=== PATIENT | male | born 1970 | race Caucasian/White ===

== ENCOUNTER → 2018-02-09 09:37 | Outpatient (CLI) | payer OTHER, SELFPAY ==
[2018-02-09 10:12] LABS: Add Manual Diff / Slide Review NO; Basophils Percent Auto 0.6 % (0-2); Eosinophils Percent Auto 2.9 % (2-4); Hematocrit 52.7 % (41-53); Lymphocytes Percent Auto 28.8 % (25-40); Mean Corpuscular HGB Conc 34.3 % (30-36); Mean Corpuscular Hemoglobin 31.1 PG (26-34); Mean Corpuscular Volume 90.8 fL (80-100); Monocytes Percent Auto 10.2 % (3-14); Neutrophils Absolute Auto 4500 /uL (3000-5900); Neutrophils Percent Auto 57.5 % (50-75); Platelet Count 235 X10^3/uL (150-400); Red Cell Distribution Width 13.5 % (11.6-14.8); White Blood Cell Count 7.9 X10^3/uL (4.5-11.0)
[2018-02-09 10:24] LABS: Alanine Aminotransferase 45 IU/L (21-72); Albumin 4.4 g/dL (3.5-5.0); Albumin Globulin Ratio 1.5 (1.0-2.8); Alkaline Phosphatase 81 U/L (38-126); Aspartate Aminotransferase 28 IU/L (17-59); Bilirubin Total 0.8 mg/dL (0.2-1.3); Bilirubin Unconjugated 0.6 mg/dL (0.0-1.1); HEMOLYSIS < 15 (0-50); Total Protein 7.4 g/dL (6.3-8.2)
[2018-02-13 05:36] LABS: Albumin 4.2 g/dL (3.6-5.1); Sex Hormone Binding Globulin 13 nmol/L (10-50); Testosterone, Bioavailable 195.3 ng/dL (110.0-575.0); Testosterone, Total 390 ng/dL (250-1100); Testosterone,Free 101.4 pg/mL (46.0-224.0)
== END ==
PROVIDERS: Visit Provider Urology
DX: E29.1 Testicular hypofunction (principal)
CPT/HCPCS: 36415; 80076; 82040; 84270; 84403; 85025

== ENCOUNTER → 2020-08-16 15:14 | Outpatient (CLI) | payer OTHER, MEDICAID, SELFPAY ==
[2020-08-16 16:35] LABS: TSH w/ Reflex to FT4 1.15 uIU/mL (0.47-4.68)
== END ==
PROVIDERS: PCP Family Medicine; Referring Provider Family Medicine; Visit Provider Family Medicine
DX: E03.9 Hypothyroidism, unspecified (principal)
CPT/HCPCS: 36415; 84443

== ENCOUNTER → 2020-11-03 08:45 | Outpatient (CLI) | payer OTHER, MEDICAID, SELFPAY ==
[2020-11-03 10:54] LABS: Prostate Specific Antigen 0.417 ng/mL (0.10-4.00)
[2020-11-04 06:36] LABS: Sex Hormone Binding Globulin 14.3 nmol/L (19.3-76.4)
[2020-11-17 14:12] LABS: Testosterone % Fr + Wkly bound 33.2 % (9.0-46.0); Testosterone Fr+Wkly bound 57.7 ng/dL (40.0-250.0); Testosterone, Total 173.9 ng/dL (264.0-916.0)
== END ==
PROVIDERS: PCP Family Medicine; Referring Provider Specialist; Visit Provider Specialist
DX: E29.1 Testicular hypofunction (principal); N40.0 Benign prostatic hyperplasia without lower urinary tract symptoms
CPT/HCPCS: 36415; 84153; 84270; 84403

== ENCOUNTER → 2020-11-23 08:19 | Outpatient (CLI) | payer OTHER, MEDICAID, SELFPAY ==
[2020-11-27 15:08] LABS: Percent Free Testosterone 4.95 % (1.50-4.20); Testosterone Free 7.04 ng/dL (5.00-21.00); Testosterone Total 142.3 ng/dL (264.0-916.0)
== END ==
PROVIDERS: PCP Family Medicine; Referring Provider Specialist; Visit Provider Specialist
DX: E29.1 Testicular hypofunction (principal)
CPT/HCPCS: 36415; 84402; 84403

== ENCOUNTER → 2021-03-09 08:48 | Outpatient (CLI) | payer OTHER, MEDICAID, SELFPAY ==
[2021-03-09 09:34] LABS: Hematocrit 46.8 % (41-53); Hemoglobin 15.7 g/dL (13.5-17.5); Mean Corpuscular HGB Conc 33.5 % (30-36); Mean Corpuscular Hemoglobin 29.7 PG (26-34); Mean Corpuscular Volume 88.8 fL (80-100); Platelet Count 240 X10^3/uL (150-400); Red Blood Cell Count 5.28 X10^6/uL (4.5-5.9); Red Cell Distribution Width 13.9 % (11.6-14.8); White Blood Cell Count 6.1 X10^3/uL (4.5-11.0)
[2021-03-09 09:57] LABS: Hemoglobin A1C% w Est Avg Glu 5.6 % (4.0-6.0)
[2021-03-09 10:07] LABS: Alanine Aminotransferase 41 IU/L (<50); Albumin 4.3 g/dL (3.5-5.0); Albumin Globulin Ratio 1.3 (1.0-2.8); Alkaline Phosphatase 84 U/L (38-126); Aspartate Aminotransferase 38 IU/L (17-59); BUN Creatinine Ratio 15.5 (6-22); Bilirubin Total 0.6 mg/dL (0.2-1.3); Blood Urea Nitrogen 17 mg/dL (9-20); Calcium 9.8 mg/dL (8.4-10.2); Carbon Dioxide 26 mmol/L (22-32); Chloride 106 mmol/L (98-107); Cholesterol 254 mg/dL (140-199); Estimated Glomerular Filt Rate > 60.0 mL/min (>60); Globulin 3.2 g/dL (1.7-4.1); Glucose 109 mg/dL (70-100); HDL Cholesterol 38 mg/dL (40-60); HEMOLYSIS < 15 (0-50); Iron 125 ug/dL (49-181); LDL Cholesterol Calculated 175 mg/dL (<100); Potassium 4.3 mmol/L (3.4-5.1); Sodium 140 mmol/L (137-145); Total Protein 7.5 g/dL (6.3-8.2); Triglycerides 203 mg/dL (35-150)
[2021-03-09 10:18] LABS: Percent Iron Saturation 34 % (20-50); Total Iron Binding Capacity 371 ug/dL (261-462); Transferrin 278 mg/dL (206-381)
[2021-03-09 10:37] LABS: Prostate Specific Antigen 0.478 ng/mL (0.10-4.00)
[2021-03-09 10:39] LABS: TSH w/ Reflex to FT4 1.45 uIU/mL (0.47-4.68)
[2021-03-09 10:42] LABS: Ferritin 64 ng/mL (18-464)
[2021-03-09 11:04] LABS: Follicle Stimulating Hormone 3.92 mIU/mL; Luteinizing Hormone 4.04 mIU/mL
[2021-03-17 10:58] LABS: Percent Free Testosterone 3.32 % (1.50-4.20); Testosterone Free 6.33 ng/dL (5.00-21.00); Testosterone Total 190.8 ng/dL (264.0-916.0)
== END ==
PROVIDERS: Specialist; PCP Registered Nurse Diabetes Educator; Referring Provider Registered Nurse Diabetes Educator; Visit Provider Registered Nurse Diabetes Educator
DX: N40.0 Benign prostatic hyperplasia without lower urinary tract symptoms (principal); E29.1 Testicular hypofunction; R73.03 Prediabetes; Z86.73 Personal history of transient ischemic attack (TIA), and cerebral infarction without residual deficits; G25.81 Restless legs syndrome
CPT/HCPCS: 36415; 80053; 80061; 82306; 82728; 83001; 83002; 83036; 83540; 83550; 84153; 84402; 84403; 84443; 85027

== ENCOUNTER 2021-03-18 16:25 | Emergency (ER) | payer OTHER, MEDICAID, SELFPAY ==
[2021-03-18 16:29] VITALS: BP 136/84; PULSE 107; RESP 20; TEMP 36.3; O2SAT 94; BMI 33.9
--- NOTE | 2021-03-18 16:32 | DI.RAD.S_ITS ---
PROCEDURE: XR CHEST 1V INDICATIONS: Cough, SOB, +COVID TECHNIQUE: One view of the chest was acquired. COMPARISON: None. FINDINGS: Surgical changes and devices: None. Lungs and pleura: Subtle patchy bilateral scattered infiltrates consistent with viral pneumonia. No pleural effusions or pneumothorax. Mediastinum: Mediastinal contours appear normal. Heart size is normal. Bones and chest wall: No suspicious bony lesions. Overlying soft tissues appear unremarkable. IMPRESSION: Subtle patchy bilateral scattered infiltrates consistent with viral pneumonia. Dictated by: Magdy Méndez M.D. on 03/18/2021 at 16:46 Approved by: Magdy Méndez M.D. on 03/18/2021 at 16:47
--- NOTE | 2021-03-18 17:00 | ED.SOB ---
HPI - SOB/Dyspnea General Chief Complaint: Shortness of Breath/Dyspnea Stated Complaint: COVID PPOSITIVE SOB COUGH Time Seen by Provider: 03/18/21 16:31 Source: patient Mode of arrival: Ambulatory History of Present Illness HPI Narrative: 51-year-old male nonsmoker with history of stroke presents with his in the chief complaint of cough and body aches. He has known DESTINY and had been exposed by multiple family members. He thinks today is about day 7 for his symptoms. He has had some mild headache and sore throat as well as a dry and hacking cough. He denies any significant shortness of breath and states that he feels the best when he uses his CPAP for sleep apnea at night. He has had very minimal GI symptoms such as nausea, vomiting or diarrhea Related Data Home Medications Medication Instructions Recorded Confirmed levothyroxine 100 mcg capsule 100 mcg PO DAILY 09/24/20 03/03/21 meloxicam 15 mg tablet 15 mg PO DAILY 09/24/20 03/03/21 metformin 500 mg tablet 500 mg PO DAILY 09/24/20 03/03/21 aspirin 500 mg tablet (Vickey 500 mg PO DAILY tab 03/03/21 03/03/21 Advanced) cholecalciferol (vitamin D3) 50 50 mcg PO DAILY 03/03/21 03/03/21 mcg (2,000 unit) capsule fluticasone propionate 50 1 spray INTRANASAL DAILY 03/03/21 03/03/21 mcg/actuation nasal spray,suspension Previous Rx's Medication Instructions Recorded testosterone 20.25 mg/1.25 gram 2 pump TOPICAL DAILY #75 g 03/08/21 (1.62 %) transdermal gel pump benzonatate 100 mg capsule 100 mg PO TID PRN #14 cap 03/18/21 (Tesarturo Lin) Allergies Allergy/AdvReac Type Severity Reaction Status Date / Time shrimp Allergy Verified 03/03/21 14:43 Review of Systems Review of Systems Narrative: GENERAL: See HPI HEENT: Denies sinus pain, ear pain, sore throat, difficulty swallowing, dizziness. RESPIRATORY: See HPI CARDIOVASCULAR: Denies chest pain, palpitations, orthopnea, edema, GASTROINTESTINAL: See HPI : Denies dysuria, frequency, incontinence, hematuria, urinary retention. MUSCULOSKELETAL: denies weakness, joint pain, or bony pain SKIN: Denies rash, skin lesions, or other NEUROLOGIC: Denies weakness, headache, numbness, change in speech, confusion, seizures, incoordination. PSYCHIATRIC: No concerning psychosocial issues. 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 History of CVA (cerebrovascular accident) Hypertension Hypogonadism in male ANSHU (obstructive sleep apnea) Polyp of colon Prediabetes Rheumatoid arthritis Stroke Thyroid disease Surgical History History of appendectomy History of circumcision History of hernia repair History of shoulder surgery History of vasectomy Family History Grandmother Cancer Father Stroke Hypertension Hyperlipidemia Diabetes mellitus Coronary artery disease Mother Eczema Migraines Brother Seizure Social History marital status: number of children: 5 occupational status: employed Smoking Status: Never smoker Smokeless tobacco user: snuff alcohol intake: current Smoking Status: Never smoker Substance Use Type: marijuana Exam Narrative Exam Narrative: GENERAL: [51] year old patient appears stated age. Well-developed patient, in mild distress. Appears to feel unwell but in no significant distress, no evidence of respiratory difficulties such as tachypnea, use of accessory muscles or hypoxia HEAD: Atraumatic. Normocephalic. EYES: Pupils equal round and reactive. Extraocular motions intact. No scleral icterus. No injection or drainage. ENT: Nose without bleeding, purulent drainage. Throat without erythema, tonsillar hypertrophy or exudate. Airway patent. NECK: Trachea midline. Non tender CARDIOVASCULAR: Regular rate and rhythm without murmurs, gallops, or rubs. RESPIRATORY: Clear to auscultation. Breath sounds equal bilaterally. No wheezes, rales, or rhonchi. GASTROINTESTINAL: Abdomen soft, non-tender, nondistended. EXTREMITIES: No edema or joint tenderness. BACK: Nontender without deformity or crepitance. No flank tenderness. NEURO: AOx3. SKIN: No rash or erythema of visible areas Initial Vital Signs Initial Vital Signs: Vital Signs Temperature 97.4 F L 03/18/21 16:29 Pulse Rate 107 H 03/18/21 16:29 Respiratory Rate 20 03/18/21 16:29 Blood Pressure 136/84 03/18/21 16:29 Pulse Oximetry 94 03/18/21 16:29 Course Orders Ordered: ED Orders 03/18/21 16:32 Chest [XR chest 1V] Stat Vital Signs Vital signs: Vital Signs - 8 hr 03/18/21 16:29 03/18/21 18:23 Temperature 97.4 F L 100.0 F H Pulse Rate 107 H 106 H Respiratory Rate 20 24 Blood Pressure 136/84 133/65 Pulse Oximetry 94 98 MDM - SOB/Dyspnea MDM Narrative Medical decision making narrative: Patient with known COVID and a very reassuring physical exam. Heart rate had improved to the 80s and 90s by the time arrival, no evidence of tachypnea and no episode of hypoxia. Patient requires no supplemental oxygen. Chest x-ray is as expected. Return precautions given and questions answered to their apparent satisfaction Discharge Plan Departure Patient Disposition: Home Clinical Impression: COVID-19 Instructions: DI for COVID-19 (Suspected or Confirmed ) Activity Restrictions/Additional Instructions: *You have been diagnosed with [ COVID-19] *What to do: * per recommendations from the CDC and the [facility] Department of Health * stay home except to get medical care. Restrict activities outside your home, except for getting medical care. Do not go to work, school, or public areas. Avoid using public transportation, ride sharing, or taxis. * separate yourself from other people in your home. * call ahead before visiting your doctor * Wear a facemask * Cover your coughs and sneezes * Clean your hands often * Avoid sharing household items * Clean all high-touch services every day * Monitor your symptoms and seek prompt medical attention if your illness is worsening, particularly with difficulty in breathing. You may discontinue your isolation when: 1. You have been fever-free for at least 24 hours without the use of fever reducing medication, AND 2. Your symptoms are getting better 3. At least 10 days have passed since symptoms first appeared Individuals with laboratory confirmed COVID-19 who have not had any symptoms may discontinue home isolation when at least 10 days have passed since the date of their first COVID-19 diagnostic test and have had no subsequent illness Prescriptions: New benzonatate [Tessalon Perles] 100 mg capsule 100 mg PO TID PRN (Reason: cough) Qty: 14 RF: 0 No Action metformin 500 mg tablet 500 mg PO DAILY RF: 0 levothyroxine 100 mcg capsule 100 mcg PO DAILY RF: 0 meloxicam 15 mg tablet 15 mg PO DAILY RF: 0 testosterone 20.25 mg/1.25 gram (1.62 %) gel in metered-dose pump 2 pump topical DAILY Qty: 75 RF: 3 fluticasone propionate 50 mcg/actuation spray,suspension 1 spray intranasal DAILY RF: 0 cholecalciferol (vitamin D3) 50 mcg (2,000 unit) capsule 50 mcg PO DAILY RF: 0 Vickey Advanced 500 mg tablet 500 mg PO DAILY RF: 0 Referrals: Demetrio Calderon ARNP [Primary Care Provider] -
[2021-03-18 18:23] VITALS: BP 133/65; PULSE 106; RESP 24; TEMP 37.8; O2SAT 98
== END 2021-03-18 18:23 | disposition home or self-care (01) ==
PROVIDERS: Emergency Provider Emergency Medicine; PCP Registered Nurse Diabetes Educator
DX: U07.1 COVID-19 (principal)
CPT/HCPCS: 71045; 99283

== ENCOUNTER → 2021-07-28 07:28 | Outpatient (CLI) | payer OTHER, MEDICAID, SELFPAY ==
[2021-07-28 08:20] LABS: Add Manual Diff / Slide Review NO; Basophils Absolute Auto 0 /uL (0-100); Basophils Percent Auto 0.5 % (0-2); Eosinophils Absolute Auto 200 /uL (0-450); Eosinophils Percent Auto 3.1 % (2-4); Hematocrit 44.2 % (41-53); Hemoglobin 15.2 g/dL (13.5-17.5); Lymphocytes Absolute Auto 3000 /uL (1100-4500); Lymphocytes Percent Auto 37.4 % (25-40); Mean Corpuscular HGB Conc 34.3 % (30-36); Mean Corpuscular Hemoglobin 30.3 PG (26-34); Mean Corpuscular Volume 88.1 fL (80-100); Monocytes Absolute Auto 800 /uL (0-900); Monocytes Percent Auto 10.1 % (3-14); Neutrophils Absolute Auto 3900 /uL (1500-7000); Neutrophils Percent Auto 48.9 % (50-75); Platelet Count 228 X10^3/uL (150-400); Red Blood Cell Count 5.01 X10^6/uL (4.5-5.9); Red Cell Distribution Width 13.4 % (11.6-14.8)
[2021-07-28 08:39] LABS: Cholesterol 162 mg/dL (140-199); HDL Cholesterol 37 mg/dL (40-60); LDL Cholesterol Calculated 99 mg/dL (<100); Triglycerides 129 mg/dL (35-150)
[2021-07-28 09:08] LABS: Prostate Specific Antigen 0.429 ng/mL (0.10-4.00)
[2021-07-28 09:11] LABS: Testosterone 158 ng/dL (71.8-623)
== END ==
PROVIDERS: PCP Registered Nurse Diabetes Educator; Referring Provider Specialist; Visit Provider Specialist
DX: E29.1 Testicular hypofunction (principal); N40.0 Benign prostatic hyperplasia without lower urinary tract symptoms; E34.9 Endocrine disorder, unspecified; N52.1 Erectile dysfunction due to diseases classified elsewhere; R97.20 Elevated prostate specific antigen [PSA]
CPT/HCPCS: 36415; 80061; 84153; 84403; 85025

== ENCOUNTER → 2021-09-28 09:03 | Outpatient (CLI) | payer OTHER, MEDICAID, SELFPAY ==
[2021-09-28 10:23] LABS: Add Manual Diff / Slide Review NO; Basophils Absolute Auto 100 /uL (0-100); Basophils Percent Auto 0.7 % (0-2); Eosinophils Absolute Auto 200 /uL (0-450); Eosinophils Percent Auto 2.8 % (2-4); Hematocrit 44.2 % (41-53); Hemoglobin 14.9 g/dL (13.5-17.5); Lymphocytes Absolute Auto 2500 /uL (1100-4500); Lymphocytes Percent Auto 34.6 % (25-40); Mean Corpuscular HGB Conc 33.6 % (30-36); Mean Corpuscular Hemoglobin 29.7 PG (26-34); Mean Corpuscular Volume 88.3 fL (80-100); Monocytes Absolute Auto 700 /uL (0-900); Monocytes Percent Auto 9.2 % (3-14); Neutrophils Absolute Auto 3900 /uL (1500-7000); Neutrophils Percent Auto 52.7 % (50-75); Platelet Count 269 X10^3/uL (150-400); Red Blood Cell Count 5.01 X10^6/uL (4.5-5.9); Red Cell Distribution Width 13.9 % (11.6-14.8); White Blood Cell Count 7.4 X10^3/uL (4.5-11.0)
[2021-09-28 11:07] LABS: Prostate Specific Antigen Scrn 0.459 ng/mL (0.1-4.0)
== END ==
PROVIDERS: PCP Registered Nurse Diabetes Educator; Referring Provider Specialist; Visit Provider Specialist
DX: D75.1 Secondary polycythemia (principal); R97.20 Elevated prostate specific antigen [PSA]; E03.9 Hypothyroidism, unspecified; E78.5 Hyperlipidemia, unspecified; R73.03 Prediabetes
CPT/HCPCS: 36415; 80053; 80061; 83036; 84443; 85025; G0103

== ENCOUNTER 2021-10-12 12:11 | Emergency (ER) | payer OTHER, MEDICAID, SELFPAY ==
[2021-10-12] VITALS (12 sets, daily range): BP systolic 114–167; BP diastolic 73–97; PULSE 71–94; RESP 16–23; TEMP 36.3; O2SAT 96–99; BMI 35.9
--- NOTE | 2021-10-12 12:49 | DI.RAD.S_ITS ---
PROCEDURE: XR CHEST 1V INDICATIONS: Possible stroke TECHNIQUE: One view of the chest was acquired. COMPARISON: [facility], CR, XR CHEST 1V, 03/18/2021, 16:36. FINDINGS: Surgical changes and devices: None. Lungs and pleura: Lungs are clear. No pleural effusions or pneumothorax. Mediastinum: Mediastinal contours appear normal. Heart size is normal. Bones and chest wall: No suspicious bony lesions. Overlying soft tissues appear unremarkable. IMPRESSION: 1. No acute cardiopulmonary disease. Dictated by: David Neumann M.D. on 10/12/2021 at 13:51 Approved by: David Neumann M.D. on 10/12/2021 at 13:54
--- NOTE | 2021-10-12 12:50 | DI.CT.S_ITS ---
PROCEDURE: CT HEAD/BRAIN WO CON INDICATIONS: on / off right leg/ arm numbess w/ right leg weak, h/o CVA TECHNIQUE: Noncontrast 4.5 mm thick angled axial sections acquired from the foramen magnum to the vertex, with coronal and sagittal reformats. For radiation dose reduction, the following was used: automated exposure control, adjustment of mA and/or kV according to patient size. COMPARISON: None. FINDINGS: Image quality: Excellent. CSF spaces: Basal cisterns are patent. No extra-axial fluid collections. The ventricles are symmetric in size and shape. Brain: There is hyperdensity in the right caudate, suspicious for subacute or chronic lacunar infarct. No intracranial bleeds or masses. There is cerebral volume loss for age. There are mild periventricular and deep white matter chronic small vessel ischemic changes. There is intracranial internal carotid artery atherosclerosis. Skull and face: Calvarium and visualized facial bones appear intact, without suspicious lesions. Sinuses: Visualized sinuses and mastoids are clear. IMPRESSION: 1. There is subacute or chronic lacunar infarct in the right caudate. Dictated by: Lee Lyles M.D. on 10/12/2021 at 13:46 Approved by: Lee Lyles M.D. on 10/12/2021 at 13:49
[2021-10-12 13:12] LABS: Add Manual Diff / Slide Review NO; Basophils Absolute Auto 0 /uL (0-100); Basophils Percent Auto 0.5 % (0-2); Eosinophils Absolute Auto 200 /uL (0-450); Eosinophils Percent Auto 2.2 % (2-4); Hematocrit 46.3 % (41-53); Hemoglobin 15.7 g/dL (13.5-17.5); Lymphocytes Absolute Auto 2500 /uL (1100-4500); Lymphocytes Percent Auto 29.4 % (25-40); Mean Corpuscular HGB Conc 33.8 % (30-36); Mean Corpuscular Hemoglobin 29.8 PG (26-34); Monocytes Absolute Auto 900 /uL (0-900); Neutrophils Absolute Auto 5000 /uL (1500-7000); Neutrophils Percent Auto 57.9 % (50-75); Platelet Count 227 X10^3/uL (150-400); Red Blood Cell Count 5.26 X10^6/uL (4.5-5.9); Red Cell Distribution Width 13.9 % (11.6-14.8); White Blood Cell Count 8.6 X10^3/uL (4.5-11.0)
[2021-10-12 13:18] LABS: INR 1.1 (0.9-1.3); Prothrombin Time 12.6 SECONDS (10.1-12.7)
[2021-10-12 13:21] LABS: PTT Partial Thromboplastin Tim 32 SECONDS (26.4-36.2)
[2021-10-12 13:23] LABS: Alanine Aminotransferase 29 IU/L (<50); Albumin 4.7 g/dL (3.5-5.0); Albumin Globulin Ratio 1.4 (1.0-2.8); Alkaline Phosphatase 93 U/L (38-126); Aspartate Aminotransferase 29 IU/L (17-59); BUN Creatinine Ratio 17.5 (6-22); Bilirubin Total 0.5 mg/dL (0.2-1.3); Blood Urea Nitrogen 17 mg/dL (9-20); Calcium 9.9 mg/dL (8.4-10.2); Carbon Dioxide 25 mmol/L (22-32); Chloride 106 mmol/L (98-107); Creatine Kinase 101 U/L (55-170); Estimated Glomerular Filt Rate > 60.0 mL/min (>60); Globulin 3.4 g/dL (1.7-4.1); Glucose 97 mg/dL (70-100); HEMOLYSIS < 15 (0-50); Potassium 3.9 mmol/L (3.4-5.1); Sodium 140 mmol/L (137-145); Total Protein 8.1 g/dL (6.3-8.2)
[2021-10-12 13:35] LABS: Troponin I < 0.012 ng/mL (0.01-0.034)
[2021-10-12 13:39] LABS: CKMB % Relative Index 0.6 % (1.5-5.0); Creatine Kinase MB 0.59 ng/mL (<2.37)
--- NOTE | 2021-10-12 13:57 | ED.NEUROSD ---
HPI - Neuro Symptoms/Deficit General Chief Complaint: Neuro Symptoms/Deficit Stated Complaint: HX CVA Right leg dragging. Dr said to come to ED Time Seen by Provider: 10/12/21 13:46 Source: patient Mode of arrival: Ambulatory History of Present Illness HPI Narrative: Patient is a 51-year-old male with history of stroke, hyperlipidemia, hypertension diabetes presenting today with 1 week of right leg weakness in right arm numbness and tingling. He says he does have a prior stroke but it was 10 years ago. In for 1 week he has had these new symptoms. He is not falling. He has no visual deficits. He does occasionally have chest discomfort which he does but sharp and steady. No palliation or provocation. He is still having some minor chest discomfort. He has been taking all his medications as directed. No known history of coronary artery disease. Patient states that his leg comes and goes. On Anticoagulants: Yes (ASA 81 mg daily) Related Data Home Medications Medication Instructions Recorded Confirmed aspirin 500 mg tablet (Vickey 500 mg PO DAILY tab 03/03/21 10/05/21 Advanced) cholecalciferol (vitamin D3) 50 50 mcg PO DAILY 03/03/21 10/05/21 mcg (2,000 unit) capsule fluticasone propionate 50 1 spray INTRANASAL DAILY 03/03/21 10/05/21 mcg/actuation nasal spray,suspension RedMed AirSense 11Auto 06/30/21 10/05/21 Previous Rx's Medication Instructions Recorded levothyroxine 100 mcg capsule 100 mcg PO DAILY #90 cap 04/13/21 atorvastatin 80 mg tablet 80 mg PO BEDTIME #90 tab 05/17/21 meloxicam 15 mg tablet 15 mg PO DAILY #90 tab 05/17/21 metformin 500 mg tablet 500 mg PO BID #180 tab 05/17/21 alfuzosin 10 mg tablet,extended 10 mg PO DAILY #90 tab 08/03/21 release 24 hr (Uroxatral) sildenafil (pulm.hypertension) 20 20 mg PO .Daily as needed #60 tab 08/03/21 mg tablet testosterone 2 mg/24 hour 1 patch TRANSDERMAL DAILY #60 ea 10/05/21 transdermal 24 hour patch Allergies Allergy/AdvReac Type Severity Reaction Status Date / Time shrimp Allergy Verified 10/12/21 12:46 Review of Systems Review of Systems Narrative: GENERAL: Denies chills, fatigue, malaise, fever, sweats, travel HEENT: Denies sinus pain, ear pain, sore throat, difficulty swallowing, neck pain RESPIRATORY: Denies dyspnea, cough, wheezing, hemoptysis, sputum. CARDIOVASCULAR: See HPI GASTROINTESTINAL: Denies nausea, vomiting, abdominal pain, diarrhea, constipation, melena. : Denies dysuria, frequency, incontinence, hematuria, urinary retention, flank pain. MUSCULOSKELETAL: Denies weakness, joint pain, or bony pain SKIN: No rash, no erythema, no pruritus NEUROLOGIC: See HPI PSYCHIATRIC: No concerning psychosocial issues. 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 Fractures Hearing loss (~1989) History of CVA (cerebrovascular accident) History of urinary incontinence (~2017) Hypertension Hypogonadism in male (~2010) Hypothyroidism Joint pain ANSHU (obstructive sleep apnea) Polyp of colon Prediabetes Rash of back (~2018) Rheumatoid arthritis Shoulder pain Stroke Thyroid disease Vision disorder Surgical History Anesthesia History of appendectomy (~1975) History of circumcision History of hernia repair (~2000) History of shoulder surgery (~1986) History of surgery (~2011) History of vasectomy Family History Grandmother Cancer Hyperlipidemia Seizure Hypertension Father Stroke Hypertension Hyperlipidemia Diabetes mellitus Coronary artery disease History of heart disease Mother Eczema Migraines Brother Seizure Grandfather Diabetes mellitus Social History marital status: number of children: 5 occupational status: employed Smoking Status: Never smoker Smokeless tobacco user: snuff alcohol intake: current Smoking Status: Never smoker alcohol intake frequency: a few times a month Substance Use Type: marijuana Exam Initial Vital Signs Initial Vital Signs: Vital Signs Temperature 97.4 F L 10/12/21 12:43 Pulse Rate 94 H 10/12/21 12:43 Respiratory Rate 18 10/12/21 12:43 Blood Pressure 153/88 H 10/12/21 12:43 Pulse Oximetry 99 10/12/21 12:43 GENERAL: Alert 51-year-old male no acute distress HEENT: Head atraumatic,EOMI, pupils reactive, face symmetric, moist mucous membranes CARDIOVASCULAR: Regular rate and rhythm without murmurs, rubs or gallops. RESPIRATORY: Breath sounds equal bilaterally, no wheezes rales or rhonchi. ABDOMEN: Soft, nontender. Normoactive bowel sounds all 4 quadrants. No guarding or rebound. EXTREMITIES: Normal range of motion, no clubbing or edema. Neurovascularly intact NEUROLOGICAL: Alert and oriented x4.Normal gait and speech. Cranial nerves II through XII grossly intact. Good qfxvur-op-gnod, good xmwi-va-nkgg, strength equal bilaterally, no dysarthria or aphasia, mild decreased sensation on the right leg visual changes, no facial droop SKIN: Warm, dry, no laceration, no petechiae, no rashes or lesions. Scores NIH Stroke Scale Level of Conciousness: Alert, keenly responsive Ask month/age: Answers both questions correctly. Open/close eyes, close hand: Performs both tasks correctly Best gaze horizontal: Normal Visual fabian: No visual loss Facial palsy: Normal symetrical movement Left arm drift: No drift for full 10 sec Right arm drift: No drift for full 10 sec Left leg drift: No drift for full 5 sec Right leg drift: No drift for full 5 sec Limb ataxia: Absent Sensory on face/arms/legs: Mild to moderate sensory loss, can tell touch Best language: No aphasia, normal Dysarthria: Normal Extinction or inattention: No abnormality Total NIH Stroke scale score: 1 Course Orders Ordered: ED Orders 10/12/21 12:04 Complete Blood Count AUTO DIFF Stat Comprehensive Metabolic Panel Stat Partial Thromboplastin Time Stat Prothrombin Time INR Stat Troponin & CK Cardiac Panel Stat 10/12/21 12:49 XR chest 1V Stat EKG-12 Lead Stat 10/12/21 12:50 CT head/brain wo con Stat 10/12/21 14:06 MR stroke Stat 10/12/21 14:30 Trop I [Troponin I] Stat Vital Signs Vital signs: Vital Signs - 8 hr 10/12/21 12:43 10/12/21 13:23 10/12/21 13:32 Temperature 97.4 F L Pulse Rate 94 H 80 80 Respiratory Rate 18 Blood Pressure 153/88 H Pulse Oximetry 99 99 98 10/12/21 13:35 10/12/21 13:46 10/12/21 14:00 Temperature Pulse Rate 73 73 71 Respiratory Rate 22 16 18 Blood Pressure 167/96 H 149/97 H 128/79 Pulse Oximetry 98 98 97 10/12/21 14:30 10/12/21 15:24 10/12/21 15:30 Temperature Pulse Rate 76 77 84 Respiratory Rate 21 22 23 Blood Pressure Pulse Oximetry 99 98 96 10/12/21 16:00 10/12/21 16:09 10/12/21 16:30 Temperature Pulse Rate 82 73 81 Respiratory Rate 21 17 Blood Pressure 123/77 114/73 Pulse Oximetry 97 97 96 MDM - Neuro Symptoms/Deficit Lab Data Result diagrams: 10/12/21 12:04 10/12/21 12:04 Labs: Lab Results 10/12/21 10/12/21 10/12/21 Range/Units 12:04 12:04 12:04 WBC 8.6 (4.5-11.0) X10^3/uL RBC 5.26 (4.5-5.9) X10^6/uL Hgb 15.7 (13.5-17.5) g/dL Hct 46.3 (41-53) % MCV 88.0 (80-100) fL MCH 29.8 (26-34) PG MCHC 33.8 (30-36) % RDW 13.9 (11.6-14.8) % Plt Count 227 (150-400) X10^3/uL Neut % (Auto) 57.9 (50-75) % Lymph % (Auto) 29.4 (25-40) % [place] % (Auto) 10.0 (3-14) % Eos % (Auto) 2.2 (2-4) % Baso % (Auto) 0.5 (0-2) % Neut # (Auto) 5000 (7277-1802) /uL Lymph # (Auto) 2500 (5852-8180) /uL [place] # (Auto) 900 (0-900) /uL Eos # (Auto) 200 (0-450) /uL Baso # (Auto) 0 (0-100) /uL PT 12.6 (10.1-12.7) SECONDS INR 1.1 (0.9-1.3) APTT 32 (26.4-36.2) SECONDS Sodium 140 (137-145) mmol/L Potassium 3.9 (3.4-5.1) mmol/L Chloride 106 (98-107) mmol/L Carbon Dioxide 25 (22-32) mmol/L BUN 17 (9-20) mg/dL Creatinine 0.97 (0.66-1.25) mg/dL Estimated GFR > 60.0 (>60) mL/min BUN/Creatinine Ratio 17.5 (6-22) Glucose 97 (70-100) mg/dL Calcium 9.9 (8.4-10.2) mg/dL Total Bilirubin 0.5 (0.2-1.3) mg/dL AST 29 (17-59) IU/L ALT 29 (<50) IU/L Alkaline Phosphatase 93 (38-126) U/L Total Creatine Kinase 101 (55-170) U/L CK-MB (CK-2) 0.59 (<2.37) ng/mL CK-MB (CK-2) Rel Index 0.6 L (1.5-5.0) % Troponin I < 0.012 (0.01-0.034) ng/mL Total Protein 8.1 (6.3-8.2) g/dL Albumin 4.7 (3.5-5.0) g/dL Globulin 3.4 (1.7-4.1) g/dL Albumin/Globulin Ratio 1.4 (1.0-2.8) 10/12/21 Range/Units 14:30 WBC (4.5-11.0) X10^3/uL RBC (4.5-5.9) X10^6/uL Hgb (13.5-17.5) g/dL Hct (41-53) % MCV (80-100) fL MCH (26-34) PG MCHC (30-36) % RDW (11.6-14.8) % Plt Count (150-400) X10^3/uL Neut % (Auto) (50-75) % Lymph % (Auto) (25-40) % [place] % (Auto) (3-14) % Eos % (Auto) (2-4) % Baso % (Auto) (0-2) % Neut # (Auto) (0550-7062) /uL Lymph # (Auto) (2170-6555) /uL [place] # (Auto) (0-900) /uL Eos # (Auto) (0-450) /uL Baso # (Auto) (0-100) /uL PT (10.1-12.7) SECONDS INR (0.9-1.3) APTT (26.4-36.2) SECONDS Sodium (137-145) mmol/L Potassium (3.4-5.1) mmol/L Chloride (98-107) mmol/L Carbon Dioxide (22-32) mmol/L BUN (9-20) mg/dL Creatinine (0.66-1.25) mg/dL Estimated GFR (>60) mL/min BUN/Creatinine Ratio (6-22) Glucose (70-100) mg/dL Calcium (8.4-10.2) mg/dL Total Bilirubin (0.2-1.3) mg/dL AST (17-59) IU/L ALT (<50) IU/L Alkaline Phosphatase (38-126) U/L Total Creatine Kinase (55-170) U/L CK-MB (CK-2) (<2.37) ng/mL CK-MB (CK-2) Rel Index (1.5-5.0) % Troponin I < 0.012 (0.01-0.034) ng/mL Total Protein (6.3-8.2) g/dL Albumin (3.5-5.0) g/dL Globulin (1.7-4.1) g/dL Albumin/Globulin Ratio (1.0-2.8) Urine Dip Bedside Urine Glucose Negative Bedside Urine Bilirubin - Negative Bedside Urine Ketone - Negative Urine Specific Page 1.030 Bedside Urine Occult Blood - Negative Bedside Urine pH 6.0 Bedside Urine Protein - Negative Bedside Urine Urobilinogen - Negative Bedside Urine Nitrite - Negative Bedside Urine Leukocytes - Negative Esterase Imaging Data CT scan - head: Radiologist's Impression: PROCEDURE:? CT HEAD/BRAIN WO CON ? INDICATIONS:? on / off right leg/ arm numbess w/ right leg weak, h/o CVA ? TECHNIQUE:? Noncontrast 4.5 mm thick angled axial sections acquired from the foramen magnum to the vertex, with coronal and sagittal reformats.? For radiation dose reduction, the following was used:? automated exposure control, adjustment of mA and/or kV according to patient size.? ? COMPARISON:? None. ? FINDINGS:? Image quality:? Excellent.? ? CSF spaces:? Basal cisterns are patent.? No extra-axial fluid collections.? The ventricles are symmetric in size and shape.? ? Brain:? There is hyperdensity in the right caudate, suspicious for subacute or chronic lacunar infarct.? No intracranial bleeds or masses.? There is cerebral volume loss for age.? There are mild periventricular and deep white matter chronic small vessel ischemic changes.? There is intracranial internal carotid artery atherosclerosis.? ? Skull and face:? Calvarium and visualized facial bones appear intact, without suspicious lesions.? ? Sinuses:? Visualized sinuses and mastoids are clear.? ? IMPRESSION: ? 1. There is subacute or chronic lacunar infarct in the right caudate. ? ? ? Dictated by: Lee Lyles M.D. on 10/12/2021 at 13:46 Chest x-ray: Radiologist's Impression: PROCEDURE:? XR CHEST 1V ? INDICATIONS:? Possible stroke ? TECHNIQUE:? One view of the chest was acquired.? ? COMPARISON:? [facility], , XR CHEST 1V, 03/18/2021, 16:36. ? FINDINGS:? ? Surgical changes and devices:? None.? ? Lungs and pleura:? Lungs are clear.? No pleural effusions or pneumothorax.? ? Mediastinum:? Mediastinal contours appear normal.? Heart size is normal.? ? Bones and chest wall:? No suspicious bony lesions.? Overlying soft tissues appear unremarkable.? ? IMPRESSION:? ? 1.? No acute cardiopulmonary disease. ? ? ? Dictated by: David Neumann M.D. on 10/12/2021 at 13:51 ? ? MR stroke: Radiologist's Impression: PROCEDURE:? MR STROKE Pre- and post-contrast brain MRI, non-contrast brain MR angiogram, pre- and postcontrast neck MR angiogram ? INDICATIONS:? old stroke , new left leg weakness and left arm [id number] ? TECHNIQUE:? Brain:? Noncontrast axial T1 spin echo, axial T2 fast spin echo, sagittal and axial FLAIR, coronal T2 fast spin echo, axial gradient echo, axial diffusion and ADC through the brain.? After the administration of contrast, axial 3D VIBE of the cranial vasculature and brain.? Brain MRA:? Non-contrast 3-D time of flight MR angiogram, with multiple ullagsy-yzajvscvm-eymwofurnl (MIP) reformats performed.? Neck MRA:? Axial and sagittal TruFISP through the neck.? Coronal dynamic MR angiogram during administration of contrast in the arterial and venous phases, with 3-dimenstional jdrkttu-muwzjpmeg-mrtqwdnmqw (MIP) reformats constructed from subtraction images.? ? COMPARISON:? None. ? FINDINGS:? Image quality:? Excellent.? ? BRAIN:? CSF spaces:? Ventricles are normal in size and shape.? Basal cisterns are patent.? No extra-axial fluid collections.? Brain:? No intracranial bleeds or mass effects.? Babcock-white matter interface is normal.? Diffusion weighted images show no acute ischemic insults.? Brainstem appears normal.? Normal intravascular flow voids are present.? No abnormal intracranial enhancement.? Old lacunar infarct noted in the right caudate nucleus.? Old cerebellar cortical infarct noted in the right cerebellar hemisphere. Skull and face:? Calvarial marrow signal is normal.? Orbits appear normal.? Sinuses:? Sinuses and mastoids are clear.? ? BRAIN MR ANGIOGRAM:? Anterior circulation:? Intracranial internal carotid arteries are normal in size and enhancement.? The flow within the paired anterior cerebral arteries is normal and symmetric.? The flow within the middle cerebral arteries is normal and symmetric.? The anterior communicating artery is seen.? No stenoses, occlusions, or aneurysms.? Posterior circulation:? The visualized portions of the vertebral arteries demonstrate normal caliber, and join to form a normal appearing basilar artery.? The flow within the posterior cerebral arteries is normal and symmetric.? No stenoses, occlusions, or aneurysms.? Hypoplasia/aplasia of the left P1 SPEED RUNNER noted. The P2 segment is supplied by a widely patent posterior communicating artery. Remainder of the distal vasculature unremarkable.? ? NECK MR ANGIOGRAM:? Carotids:? Great vessels demonstrate a conventional anatomy as they arise from the aortic arch.? The origins of the common carotid arteries appear patent.? The calibers and courses of both common carotid arteries are normal.? 30% stenosis noted in the proximal left ICA.? The internal carotid arteries otherwise demonstrate normal course and caliber. ? Posterior circulation:? The origins of the vertebral arteries appear patent.? More superior portions of both vertebral arteries demonstrate normal course and caliber, and join to form a normal appearing basilar artery.? Miscellaneous:? Subclavian arteries appear patent.? Pre-contrast images through the neck show no soft tissue abnormalities.? ? IMPRESSION:? ? 1. Old right basal ganglia lacunar and right cerebellar cortical infarcts.? No acute infarct, hemorrhage or mass lesion. ? 2. Unremarkable MR angiogram of the brain ? 3. 30% left proximal ICA stenosis utilizing NASCET criteria. ? Approved by: Jacnito Michaud M.D. on 10/12/2021 at 15:18? ECG Data Interpretation: Rhythm rate 71 MO interval 218 QRS [address] changes or T-wave inversions, no priors to compare MDM Narrative Medical decision making narrative: Patient has had ongoing symptoms for over 1 week they do seem to come and go. He has a history of a prior stroke without residual deficits. He does have some mild decreased sensation but he is walking. CT showed subacute or chronic stroke, MRI does not show any new or acute stroke. He is re-evaluated he is ambulatory without any difficulty there is no foot drop. He says that he does have a history of sciatica but he says this is completely different he has no back pain or sharp shooting pain. He says his leg to sometimes feels ? At this time no further workup. He says he has not missed any of his medication. Recommend he continue to take aspirin and all of his medications. I also strongly encouraged him to return to the emergency department and he should have any new or worsening symptoms Patient also complaining of intermittent chest discomfort is a vest been going on for a long time. No EKG changes 2- troponins. Strongly recommended follow-up for possible stress test and echocardiogram. Discharge Plan Departure Patient Disposition: Home Clinical Impression: Right leg weakness, Chronic cerebrovascular accident Instructions: DI for Stroke-Ischemic Activity Restrictions/Additional Instructions: *You have been diagnosed with leg weakness *What to do: At this time MRI does not show any new stroke. Please continue to take all of your medication so that you do not have a stroke or heart attack. You may need further heart workup such as a stress test or an echocardiogram. *Continue to take medications as directed *Follow up with your primary care provider in 2-3 days or call [phone] *Return to ER if you should have increasing weakness tingling inability to walk loss of urine or stool worsening back pain or any new, worsening or concerning symptoms Prescriptions: No Action levothyroxine 100 mcg capsule 100 mcg PO DAILY Qty: 90 3RF fluticasone propionate 50 mcg/actuation spray,suspension 1 spray intranasal DAILY 0RF Rx Instructions: administer into each nostril cholecalciferol (vitamin D3) 50 mcg (2,000 unit) capsule 50 mcg PO DAILY 0RF Vickey Advanced 500 mg tablet 500 mg PO DAILY 0RF atorvastatin 80 mg tablet 80 mg PO BEDTIME Qty: 90 3RF metformin 500 mg tablet 500 mg PO BID Qty: 180 3RF meloxicam 15 mg tablet 15 mg PO DAILY Qty: 90 3RF (DME) RedMed AirSense 11Auto See Rx Instructions .Route .MEDSUPPLY 0RF Rx Instructions: CPAP Min: Max: DME: [facility] sildenafil (pulm.hypertension) 20 mg tablet 20 mg PO .Daily as needed Qty: 60 3RF Rx Instructions: Take 1 to maximum of 5 tablets by mouth daily as needed 1 hour before sexual activity. alfuzosin [Uroxatral] 10 mg tablet extended release 24 hr 10 mg PO DAILY Qty: 90 3RF Rx Instructions: administer after the same meal each day testosterone 2 mg/24 hour patch 24 hour 1 patch transdermal DAILY Qty: 60 3RF Referrals: Demetrio Calderon ARNP [Primary Care Provider] -
--- NOTE | 2021-10-12 14:06 | DI.MRI.S_ITS ---
PROCEDURE: MR STROKE Pre- and post-contrast brain MRI, non-contrast brain MR angiogram, pre- and postcontrast neck MR angiogram INDICATIONS: old stroke , new left leg weakness and left arm [id number] TECHNIQUE: Brain: Noncontrast axial T1 spin echo, axial T2 fast spin echo, sagittal and axial FLAIR, coronal T2 fast spin echo, axial gradient echo, axial diffusion and ADC through the brain. After the administration of contrast, axial 3D VIBE of the cranial vasculature and brain. Brain MRA: Non-contrast 3-D time of flight MR angiogram, with multiple klwdtkk-erpwtxxxd-pfkrbinbxj (MIP) reformats performed. Neck MRA: Axial and sagittal TruFISP through the neck. Coronal dynamic MR angiogram during administration of contrast in the arterial and venous phases, with 3-dimenstional xkjwwox-vmxbxpwhb-mjwzxfslbg (MIP) reformats constructed from subtraction images. COMPARISON: None. FINDINGS: Image quality: Excellent. BRAIN: CSF spaces: Ventricles are normal in size and shape. Basal cisterns are patent. No extra-axial fluid collections. Brain: No intracranial bleeds or mass effects. Babcock-white matter interface is normal. Diffusion weighted images show no acute ischemic insults. Brainstem appears normal. Normal intravascular flow voids are present. No abnormal intracranial enhancement. Old lacunar infarct noted in the right caudate nucleus. Old cerebellar cortical infarct noted in the right cerebellar hemisphere. Skull and face: Calvarial marrow signal is normal. Orbits appear normal. Sinuses: Sinuses and mastoids are clear. BRAIN MR ANGIOGRAM: Anterior circulation: Intracranial internal carotid arteries are normal in size and enhancement. The flow within the paired anterior cerebral arteries is normal and symmetric. The flow within the middle cerebral arteries is normal and symmetric. The anterior communicating artery is seen. No stenoses, occlusions, or aneurysms. Posterior circulation: The visualized portions of the vertebral arteries demonstrate normal caliber, and join to form a normal appearing basilar artery. The flow within the posterior cerebral arteries is normal and symmetric. No stenoses, occlusions, or aneurysms. Hypoplasia/aplasia of the left P1 [employer] TE[employer]ER noted. The P2 segment is supplied by a widely patent posterior communicating artery. Remainder of the distal vasculature unremarkable. NECK MR ANGIOGRAM: Carotids: Great vessels demonstrate a conventional anatomy as they arise from the aortic arch. The origins of the common carotid arteries appear patent. The calibers and courses of both common carotid arteries are normal. 30% stenosis noted in the proximal left ICA. The internal carotid arteries otherwise demonstrate normal course and caliber. Posterior circulation: The origins of the vertebral arteries appear patent. More superior portions of both vertebral arteries demonstrate normal course and caliber, and join to form a normal appearing basilar artery. Miscellaneous: Subclavian arteries appear patent. Pre-contrast images through the neck show no soft tissue abnormalities. IMPRESSION: 1. Old right basal ganglia lacunar and right cerebellar cortical infarcts. No acute infarct, hemorrhage or mass lesion. 2. Unremarkable MR angiogram of the brain 3. 30% left proximal ICA stenosis utilizing NASCET criteria. Approved by: Jacinto Michaud M.D. on 10/12/2021 at 15:18
[2021-10-12 15:01] LABS: Troponin I < 0.012 ng/mL (0.01-0.034)
== END 2021-10-12 17:05 | disposition home or self-care (01) ==
PROVIDERS: Emergency Provider Emergency Medicine; PCP Registered Nurse Diabetes Educator
DX: M62.81 Muscle weakness (generalized) (principal); Z86.73 Personal history of transient ischemic attack (TIA), and cerebral infarction without residual deficits; Z79.82 Long term (current) use of aspirin
CPT/HCPCS: 36415; 70450; 70548; 70553; 71045; 80053; 81003; 82550; 82553; 84484; 85025; 85610; 85730; 93005; 99284

== ENCOUNTER → 2021-11-09 10:29 | Outpatient (CLI) | payer OTHER, MEDICAID, SELFPAY ==
[2021-11-09 12:44] LABS: COVID19 -Nasal RAPID Negative (Negative)
== END ==
PROVIDERS: PCP Registered Nurse Diabetes Educator; Visit Provider Family Medicine Sleep Medicine
DX: Z20.822 Contact with and (suspected) exposure to COVID-19 (principal)
CPT/HCPCS: 87635; C9803

== ENCOUNTER → 2021-11-09 10:40 | Outpatient (CLI) | payer OTHER, MEDICAID, SELFPAY ==
--- NOTE | 2021-11-09 10:41 | DI.NM.S_ITS ---
PROCEDURE: NM HAL PERF SPECT REST & STR Rest and exercise myocardial perfusion SPECT with gated imaging and ejection fraction RADIOPHARMACEUTICAL: 25.1 mCi Tc-99m sestamibi IV at rest and 26.2 mCi Tc-99m sestamibi IV at peak exercise. A 3-kdc-asddwkzj was performed. INDICATIONS: eval atypical CP TECHNIQUE: Radiopharmaceutical was injected at peak stress test, and also at rest. SPECT images were obtained. SPECT myocardial perfusion images were displayed in short axis, horizontal long axis, and vertical long axis views. Gated images were reviewed using [employer]ikid[employer] software. COMPARISON: None. CARDIAC STRESS: A standard Konstantin treadmill exercise tolerance test was performed by the patient under the supervision of an attending staff. The patient exercised for 6 minutes and 9 seconds; 7.0 METS; functional aerobic impairment (BRIDGET) is +30%. Hemodynamic data: There is normal blood pressure and heart rate response to exercise stress. Patient achieved 93% of maximum predicted heart rate at peak exercise at 155 bpm. Maximum BP 196/100. Symptoms: Patient denied chest pain during exercise. EKG: No diagnostic EKG changes of ischemia; no ectopy. FINDINGS: Raw data: There is good myocardial labeling by radiotracer. No significant motion artifacts. Awny-wu-oamoi ratio is 0.44 (normal is less than 0.38 for sestamibi tracer, and less than 0.50 for thallium tracer). Left ventricle function: Gated images demonstrate normal left ventricle wall thickening. No segmental wall motion abnormality. No transient ischemic dilation; TID is 0.9 (normal less than 1.3). The left ventricle resting end-diastolic volume is 112 mL. Left ventricle stress ejection fraction is 71%; normal values are above 45%. Myocardial perfusion: There is normal distribution of activity in the left and right ventricular myocardium. No fixed or reversible perfusion defects. IMPRESSION: 1. No evidence of exercise-induced ischemia on ECG or SPECT images. 2. Normal blood pressure response to exercise. 3. Reduced exercise capacity. Dictated by: Daisy Pickett D.O. on 11/10/2021 at 17:00 Approved by: Daisy Pickett M.D. on 11/10/2021 at 17:04
--- NOTE | 2021-11-10 14:35 | PM.TREADMILL ---
Cardiac Stress Test Report Referral & Results Date Patient Seen: 11/10/21 Requesting provider: Demetrio Calderon Indication: Atypical chest pain Rest ECG: Unremarkable Procedure Note: Today following both written and verbal informed consent the patient was exercised according to a standard Konstantin protocol patient went for a total of 6 minutes 9 seconds a maximum heart rate of 155 maximum systolic blood pressure of 196. This is approximately 7.0 METS. Exercise was terminated at this point because of patient unable to continue, and heart rate and blood pressure targets were met Patient was also given Cardiolite through a previously started Hep-Lock IV by the diagnostic imaging staff approximately 1 minute prior to the cessation of exercise. There are no ST-T segment changes identified Rare PVC Occasional PAC in recovery Function aerobic impairment rates about 30% on the sedentary scale Somewhat elevated blood pressure initially and slow to come back down after treadmill in recovery. Normal heart rate response, perhaps borderline tachycardic at baseline Impression: No evidence of ischemia. Limited exercise capacity. Please see perfusion imaging report as well Please note: Actual ECG tracings can be found in the PACS system.
== END ==
PROVIDERS: PCP Registered Nurse Diabetes Educator; Referring Provider Registered Nurse Diabetes Educator; Visit Provider Registered Nurse Diabetes Educator
DX: R07.89 Other chest pain (principal); E78.5 Hyperlipidemia, unspecified; Z86.73 Personal history of transient ischemic attack (TIA), and cerebral infarction without residual deficits; Z20.822 Contact with and (suspected) exposure to COVID-19
CPT/HCPCS: 78452; 87635; 93016; 93017; 93018; C9803; A9502

== ENCOUNTER → 2021-12-01 07:58 | Outpatient (CLI) | payer OTHER, MEDICAID, SELFPAY ==
[2021-12-01 10:11] LABS: Follicle Stimulating Hormone 3.83 mIU/mL; Luteinizing Hormone 3.39 mIU/mL
[2021-12-01 10:26] LABS: TSH w/ Reflex to FT4 0.64 uIU/mL (0.47-4.68)
[2021-12-09 06:28] LABS: Testosterone Total 206.1 ng/dL (264.0-916.0)
== END ==
PROVIDERS: PCP Registered Nurse Diabetes Educator; Referring Provider Specialist; Visit Provider Specialist
DX: E29.1 Testicular hypofunction (principal); E34.9 Endocrine disorder, unspecified; N52.1 Erectile dysfunction due to diseases classified elsewhere; R45.4 Irritability and anger; F41.9 Anxiety disorder, unspecified
CPT/HCPCS: 36415; 83001; 83002; 84402; 84403; 84443

== ENCOUNTER → 2021-12-30 08:56 | Outpatient (CLI) | payer OTHER, MEDICAID, SELFPAY ==
[2021-12-30 09:56] LABS: Hematocrit 42.6 % (41-53); Hemoglobin 14.6 g/dL (13.5-17.5); Mean Corpuscular HGB Conc 34.3 % (30-36); Mean Corpuscular Hemoglobin 29.8 PG (26-34); Mean Corpuscular Volume 86.9 fL (80-100); Platelet Count 207 X10^3/uL (150-400); Red Blood Cell Count 4.91 X10^6/uL (4.5-5.9); Red Cell Distribution Width 13.5 % (11.6-14.8); White Blood Cell Count 6.2 X10^3/uL (4.5-11.0)
[2021-12-30 10:39] LABS: Prostate Specific Antigen 0.486 ng/mL (0.10-4.00)
[2021-12-30 10:42] LABS: Testosterone 83.1 ng/dL (71.8-623)
== END ==
PROVIDERS: PCP Registered Nurse Diabetes Educator; Referring Provider Specialist; Visit Provider Specialist
DX: N40.0 Benign prostatic hyperplasia without lower urinary tract symptoms (principal); E34.9 Endocrine disorder, unspecified; N52.1 Erectile dysfunction due to diseases classified elsewhere
CPT/HCPCS: 36415; 84153; 84403; 85027

== ENCOUNTER → 2022-03-03 09:44 | Outpatient (CLI) | payer OTHER, SELFPAY ==
--- NOTE | 2022-03-03 10:02 | DI.RAD.S_ITS ---
PROCEDURE: XR KNEE LT 1TO2V INDICATIONS: KNEE PAIN BILAT TECHNIQUE: 2 views of the knee were acquired. COMPARISON: None. FINDINGS: Bones: No fractures or dislocations. No suspicious bony lesions. Soft tissues: No joint effusion. No suspicious soft tissue calcifications. IMPRESSION: No acute fracture. No osseous lesion. If symptoms and/or clinical suspicion for pathology persist, further assessment with repeat, or advanced imaging (e.g., CT, MRI, or bone scan) may be helpful for further assessment. Dictated by: Peterson Hawk M.D. on 03/03/2022 at 11:08 Approved by: Peterson Hawk M.D. on 03/03/2022 at 11:09
--- NOTE | 2022-03-03 10:02 | DI.RAD.S_ITS ---
PROCEDURE: XR KNEE RT 1TO2V INDICATIONS: KNEE PAIN BILAT TECHNIQUE: 2 views of the knee were acquired. COMPARISON: None. FINDINGS: Bones: No fractures or dislocations. No suspicious bony lesions. Soft tissues: No joint effusion. No suspicious soft tissue calcifications. IMPRESSION: No acute fracture. No osseous lesion. If symptoms and/or clinical suspicion for pathology persist, further assessment with repeat, or advanced imaging (e.g., CT, MRI, or bone scan) may be helpful for further assessment. Dictated by: Peterson Hawk M.D. on 03/03/2022 at 11:09 Approved by: Peterson Hawk M.D. on 03/03/2022 at 11:10
== END ==
PROVIDERS: PCP Registered Nurse Diabetes Educator; Referring Provider Internal Medicine Cardiovascular Disease; Visit Provider Internal Medicine Cardiovascular Disease
DX: M25.561 Pain in right knee (principal); M25.562 Pain in left knee
CPT/HCPCS: 73560

== ENCOUNTER → 2022-05-02 08:58 | Outpatient (CLI) | payer OTHER, MEDICAID, SELFPAY ==
[2022-05-02 10:17] LABS: Hematocrit 43.9 % (41-53); Hemoglobin 15.2 g/dL (13.5-17.5); Mean Corpuscular HGB Conc 34.6 % (30-36); Mean Corpuscular Hemoglobin 30.2 PG (26-34); Mean Corpuscular Volume 87.4 fL (80-100); Platelet Count 220 X10^3/uL (150-400); Red Blood Cell Count 5.02 X10^6/uL (4.5-5.9); White Blood Cell Count 7.3 X10^3/uL (4.5-11.0)
[2022-05-02 10:35] LABS: Alanine Aminotransferase 29 IU/L (<50); Albumin 4.2 g/dL (3.5-5.0); Albumin Globulin Ratio 1.4 (1.0-2.8); Alkaline Phosphatase 89 U/L (38-126); Aspartate Aminotransferase 23 IU/L (17-59); BUN Creatinine Ratio 24.7 (6-22); Bilirubin Total 0.5 mg/dL (0.2-1.3); Blood Urea Nitrogen 23 mg/dL (9-20); Carbon Dioxide 28 mmol/L (22-32); Chloride 103 mmol/L (98-107); Cholesterol 182 mg/dL (140-199); Estimated Glomerular Filt Rate > 60 mL/min (>60); Globulin 3.1 g/dL (1.7-4.1); Glucose 100 mg/dL (70-100); HDL Cholesterol 41 mg/dL (40-60); HEMOLYSIS < 15 (0-50); LDL Cholesterol Calculated 106 mg/dL (<100); Potassium 4.2 mmol/L (3.4-5.1); Sodium 140 mmol/L (137-145); Total Protein 7.3 g/dL (6.3-8.2); Triglycerides 176 mg/dL (35-150)
[2022-05-02 10:39] LABS: Hemoglobin A1C% w Est Avg Glu 5.5 % (4.0-6.0)
[2022-05-02 11:05] LABS: TSH w/ Reflex to FT4 2.09 uIU/mL (0.47-4.68)
== END ==
PROVIDERS: PCP Registered Nurse Diabetes Educator; Referring Provider Registered Nurse Diabetes Educator; Visit Provider Registered Nurse Diabetes Educator
DX: E03.9 Hypothyroidism, unspecified (principal); E78.5 Hyperlipidemia, unspecified; R73.03 Prediabetes
CPT/HCPCS: 36415; 80053; 80061; 83036; 84443; 85027

== ENCOUNTER 2022-08-31 13:57 | Emergency (ER) | payer OTHER, MEDICAID, SELFPAY ==
[2022-08-31 14:05] VITALS: BP 144/96; PULSE 92; RESP 16; TEMP 36.4; O2SAT 96; BMI 35.9
== END 2022-08-31 17:26 | disposition left against medical advice (07) ==
PROVIDERS: Emergency Provider Emergency Medicine; PCP Registered Nurse Diabetes Educator
CPT/HCPCS: 99281

== ENCOUNTER → 2022-09-19 08:28 | Outpatient (CLI) | payer OTHER, MEDICAID, SELFPAY ==
[2022-09-19 09:34] LABS: Hematocrit 43.6 % (41-53); Hemoglobin 14.4 g/dL (13.5-17.5)
[2022-09-19 10:01] LABS: Alanine Aminotransferase 29 IU/L (<50); Albumin 4.1 g/dL (3.5-5.0); Albumin Globulin Ratio 1.4 (1.0-2.8); Alkaline Phosphatase 90 U/L (38-126); Aspartate Aminotransferase 26 IU/L (17-59); BUN Creatinine Ratio 20.5 (6-22); Bilirubin Total 0.6 mg/dL (0.2-1.3); Blood Urea Nitrogen 18 mg/dL (9-20); Calcium 9.5 mg/dL (8.4-10.2); Carbon Dioxide 26 mmol/L (22-32); Chloride 103 mmol/L (98-107); Estimated Glomerular Filt Rate > 60 mL/min (>60); Glucose 102 mg/dL (70-100); HEMOLYSIS < 15 (0-50); Potassium 4.7 mmol/L (3.4-5.1); Sodium 140 mmol/L (137-145); Total Protein 7.1 g/dL (6.3-8.2)
[2022-09-19 10:17] LABS: Follicle Stimulating Hormone 4.21 mIU/mL; Luteinizing Hormone 3.56 mIU/mL; Prolactin 10.8 ng/mL (3.7-17.9)
[2022-09-21 01:08] LABS: Sex Hormone Binding Globulin 17.2 nmol/L (19.3-76.4)
[2022-09-26 07:19] LABS: Testosterone % Fr + Wkly bound 31.8 % (9.0-46.0); Testosterone Fr+Wkly bound 61.9 ng/dL (40.0-250.0); Testosterone, Total 194.8 ng/dL (264.0-916.0)
== END ==
PROVIDERS: PCP Registered Nurse Diabetes Educator; Referring Provider Internal Medicine Endocrinology, Diabetes & Metabolism; Visit Provider Internal Medicine Endocrinology, Diabetes & Metabolism
DX: R79.89 Other specified abnormal findings of blood chemistry (principal)
CPT/HCPCS: 36415; 80053; 83001; 83002; 84146; 84153; 84270; 84403; 85014; 85018

== ENCOUNTER → 2022-12-06 09:26 | Outpatient (CLI) | payer OTHER, MEDICAID, SELFPAY ==
[2022-12-06 10:46] LABS: Add Manual Diff / Slide Review NO; Basophils Absolute Auto 0 /uL (0-100); Basophils Percent Auto 0.8 % (0-2); Eosinophils Absolute Auto 200 /uL (0-450); Eosinophils Percent Auto 3.3 % (2-4); Hemoglobin 14.5 g/dL (13.5-17.5); Lymphocytes Absolute Auto 2000 /uL (1100-4500); Lymphocytes Percent Auto 34.3 % (25-40); Mean Corpuscular HGB Conc 33.8 % (30-36); Mean Corpuscular Hemoglobin 29.9 PG (26-34); Mean Corpuscular Volume 88.6 fL (80-100); Monocytes Absolute Auto 700 /uL (0-900); Monocytes Percent Auto 11.4 % (3-14); Neutrophils Absolute Auto 3000 /uL (1500-7000); Neutrophils Percent Auto 50.2 % (50-75); Platelet Count 202 X10^3/uL (150-400); Red Blood Cell Count 4.85 X10^6/uL (4.5-5.9); Red Cell Distribution Width 13.4 % (11.6-14.8)
[2022-12-06 10:53] LABS: Appearance Urine UA CLEAR; Bilirubin Urine UA NEGATIVE (NEGATIVE); Color Urine UA YELLOW; Glucose Urine UA NEGATIVE (Negative); Ketones Urine UA NEGATIVE (NEGATIVE); Leukocyte Esterase Urine UA NEGATIVE (NEGATIVE); Nitrite Urine UA NEGATIVE (Negative); Occult Blood Urine UA NEGATIVE (Negative); Protein Urine UA NEGATIVE (Negative); Specific Gravity Urine UA >=1.030 (1.000-1.035); Urobilinogen Urine UA 0.2 E.U./dL (0.2); pH Urine UA 5.5 (4.5-8.0)
[2022-12-06 11:00] LABS: Bacteria Urine None Seen; RBC Urine None Seen (0-5/HPF); Squamous Epithelial Cell Urine 0-1 /HPF (0-5/HPF); WBC Urine None Seen (0-5/HPF)
[2022-12-06 11:01] LABS: Culture Indicated Urine Cult Not Indicated
[2022-12-06 11:26] LABS: Alanine Aminotransferase 28 IU/L (<50); Albumin 3.9 g/dL (3.5-5.0); Albumin Globulin Ratio 1.6 (1.0-2.8); Alkaline Phosphatase 68 U/L (38-126); Aspartate Aminotransferase 28 IU/L (17-59); Bilirubin Total 0.4 mg/dL (0.2-1.3); Blood Urea Nitrogen 16 mg/dL (9-20); Calcium 8.5 mg/dL (8.4-10.2); Carbon Dioxide 26 mmol/L (22-32); Chloride 105 mmol/L (98-107); Estimated Glomerular Filt Rate > 60 mL/min (>60); Globulin 2.4 g/dL (1.7-4.1); Glucose 98 mg/dL (70-100); HEMOLYSIS < 15 (0-50); Potassium 4.7 mmol/L (3.4-5.1); Sodium 138 mmol/L (137-145); Total Protein 6.3 g/dL (6.3-8.2)
[2022-12-06 11:40] LABS: Vitamin D 25 Hydroxy (D3) 25.8 ng/mL (30.0-100.0)
[2022-12-06 11:55] LABS: TSH w/ Reflex to FT4 0.72 uIU/mL (0.47-4.68)
== END ==
PROVIDERS: PCP Registered Nurse Diabetes Educator; Referring Provider Registered Nurse Diabetes Educator; Visit Provider Registered Nurse Diabetes Educator
DX: R10.31 Right lower quadrant pain (principal)
CPT/HCPCS: 36415; 80053; 81001; 82306; 84443; 85025

== ENCOUNTER → 2023-02-20 16:27 | Outpatient (CLI) | payer OTHER, MEDICAID, SELFPAY ==
--- NOTE | 2023-02-20 16:31 | DI.RAD.S_ITS ---
PROCEDURE: XR SHOULDER RT MIN 2V INDICATIONS: shoulder pain mulitple surgeries TECHNIQUE: 3 views of the shoulder were acquired. COMPARISON: None. FINDINGS: Bones: Postsurgical changes are noted involving anterior inferior portion of glenoid. Increased radiolucency surrounding surgical screw is seen concerning for hardware loosening. No fractures or dislocations. Osteoarthritic changes are seen in right acromioclavicular joint and glenohumeral joint. No suspicious bony lesions. Visualized ribs appear intact. Soft tissues: No suspicious soft tissue calcifications. IMPRESSION: Prior surgery involving inferior and anterior glenoid with suggestion of hardware loosening as above. Moderate right shoulder joint osteoarthritis. No acute fracture or dislocation. Dictated by: Carlos Henderson M.D. on 02/20/2023 at 17:26 Approved by: Carlos Henderson M.D. on 02/20/2023 at 17:27
== END ==
PROVIDERS: PCP Registered Nurse Diabetes Educator; Referring Provider Registered Nurse Diabetes Educator; Visit Provider Registered Nurse Diabetes Educator
DX: M25.511 Pain in right shoulder (principal); M19.011 Primary osteoarthritis, right shoulder
CPT/HCPCS: 73030

== ENCOUNTER → 2023-02-21 07:53 | Outpatient (CLI) | payer OTHER, MEDICAID, SELFPAY ==
[2023-02-21 08:20] LABS: Alanine Aminotransferase 26 IU/L (<50); Albumin 4.1 g/dL (3.5-5.0); Albumin Globulin Ratio 1.4 (1.0-2.8); Alkaline Phosphatase 59 U/L (38-126); Aspartate Aminotransferase 29 IU/L (17-59); BUN Creatinine Ratio 20.2 (6-22); Bilirubin Total 0.6 mg/dL (0.2-1.3); Blood Urea Nitrogen 19 mg/dL (9-20); Calcium 8.7 mg/dL (8.4-10.2); Carbon Dioxide 24 mmol/L (22-32); Chloride 107 mmol/L (98-107); Estimated Glomerular Filt Rate > 60 mL/min (>60); Glucose 108 mg/dL (70-100); HEMOLYSIS 43 (0-50); Potassium 4.3 mmol/L (3.4-5.1); Sodium 139 mmol/L (137-145); Total Protein 7.1 g/dL (6.3-8.2)
--- NOTE | 2023-02-21 09:33 | DI.CT.S_ITS ---
PROCEDURE: CT ABDOMEN PELVIS W CON INDICATIONS: lower abdominal pelvic pains mostly right TECHNIQUE: After the administration of oral and IV contrast, axial sections were acquired from the lung bases to the pubic symphysis. Coronal and sagittal reformats were performed. For radiation dose reduction, the following was used: automated exposure control, adjustment of mA and/or kV according to patient size. COMPARISON: None. FINDINGS: Image quality: Excellent. Lung bases: Unremarkable. Heart: No significant findings. ABDOMEN: Liver: Thin-walled probable cyst or hemangioma measuring 1.7 cm in segment eight. Otherwise no liver masses. Gallbladder: Normal. Biliary ducts: Nondilated.. Pancreas: Normal. Spleen: Normal size. Adrenal Glands: Stools. Kidneys and Ureters: Symmetric enhancement. No nephrolithiasis or hydronephrosis. No hydroureter. Stomach and Bowel: Occasional descending and sigmoid colonic diverticula. Stomach and small bowel loops are normal. Appendix was not seen. Peritoneum: No abnormal intraperitoneal fluid. No free air. Ventral Wall: No hernia. Abdominal Nodes: No retroperitoneal or mesenteric adenopathy by size criteria. Vessels: Aorta and inferior vena cava are normal in size. PELVIS: Pelvic Organs: Normal size prostate gland. Bladder: Normal wall thickness given decompression. Pelvic Nodes: No enlarged lymph nodes. Miscellaneous: Prior left inguinal hernia repair. Moderate size, fat containing indirect right inguinal hernia. The urinary bladder is being tethered to the right by herniating pelvic fat. Bones: Degenerative disc and endplate changes at L4-5. IMPRESSION: 1. Moderate-size fat containing right inguinal hernia. 2. Prior left inguinal hernia repair. Dictated by: Lauren Diaz M.D. on 02/21/2023 at 9:06 Approved by: Lauren Diaz M.D. on 02/21/2023 at 9:22
== END ==
PROVIDERS: PCP Registered Nurse Diabetes Educator; Referring Provider Registered Nurse Diabetes Educator; Visit Provider Registered Nurse Diabetes Educator
DX: K40.90 Unilateral inguinal hernia, without obstruction or gangrene, not specified as recurrent (principal); R10.31 Right lower quadrant pain; E03.9 Hypothyroidism, unspecified; E78.5 Hyperlipidemia, unspecified; R73.03 Prediabetes
CPT/HCPCS: 36415; 74177; 80053; Q9967

== ENCOUNTER 2023-03-14 10:26 | Day surgery (SDC) | payer OTHER, MEDICAID, SELFPAY ==
--- NOTE | 2023-03-13 09:13 | PM.PREOP ---
Pre-operative Note Interval Note History & Physical reviewed/Exam performed by Physician: Yes Changes to H&P: No
[2023-03-13 10:55] VITALS: BMI 32.1
[2023-03-14 10:47] VITALS: BP 121/78; PULSE 78; RESP 16; TEMP 36.2; O2SAT 97
[2023-03-14] MEDS: LACTATED RINGERS 1,000 ML 100 ML IV (10:49)
[2023-03-14 10:51] VITALS: BMI 31.8
[2023-03-14] MEDS: CEFAZOLIN 2 GM/100 ML PREMIX 100 ML IV (12:10)
--- NOTE | 2023-03-14 12:25 | SUR.OPER ---
Supine on padded OR bed, head on pillow, arms secured on padded arm boards at <90 degrees abduction, legs uncrossed, safety belt at thigh, tape over blanket over lower legs.
[2023-03-14] MEDS: BUPIVACAINE 0.25% (PF) VIAL 30 ML INJ (12:30)
--- NOTE | 2023-03-14 13:00 | P.OP_ITS ---
Operative Date/Time/Diagnoses Date of procedure: 03/14/23 Time of procedure: 13:00 Pre-op diagnosis: Right inguinal hernia Post-op diagnosis: same Procedure & Clinicians Procedure: Open right inguinal hernia repair with mesh Same procedure as scheduled: Yes Indications: Symptomatic reducible right inguinal hernia Surgeon: Evelio Farooq Medication Technician: Brannon Gill Anesthesia Type: General Operative Notes Findings: Moderate-sized indirect hernia. No direct floor defect. Specimen(s): none sent Estimated Blood Loss (mL): 10 Procedure in detail: The patient was placed supine on the table and bilateral lower extremity compression devices were applied. Anesthesia was induced they were intubated with an LMA and received Ancef. A time-out was performed. They were prepped and draped in sterile fashion. The right external inguinal ring and the anterior superior iliac crest were identified and marked. 1 finger breath above the inguinal ligament the skin was infiltrated with 0.25% bupivacaine. The skin incision was made, the subcutaneous tissues were divided with electrocautery exposing the external oblique aponeurosis which was then opened along the direction of its fibers. Using blunt dissection the internal oblique aporneurosis was from the external oblique upper leaflet. The cord was carefully dissected away from the inguinal canal adjacent to the pubic tubercle. The cord including the vas deferens, testicular bloody supply, ilioguinal and genital nerve were encircled with a [place] drain. No direct floor defect was identified. The cremasteric fibers surrounding the cord were divided adjacent to the internal ring. The vas deferens and the testicular vessels were preserved and protected. The cord contents were carefully explored. There was a moderate size indirect hernia on the anterior medial aspect of the cord which was skeletonized away from the vas deferens and testicular blood supply. The indirect hernia was skeletonized back to the internal ring and reduced spontaneously into the abdomen. A 7x 15 cm lightweight Bard Pro Loop hernia mesh was anchored to the insertion of the rectus muscle at the pubic tubercle such that there was approximately 2 cm of tubercle overlap with Ethibond. The inferior edge of the mesh was secured to the shelving edge of the inguinal ligament using Ethibond. Interrupted 3 0 Vicryl suture was used to anchor the superior aspect of the mesh to the conjoined tendon in several places. The tails were then reapproximated loosely around the spermatic cord. The tails of the mesh were then tucked under the external oblique aponeurosis. The repair was checked for hemostasis. The wound was irrigated with sterile saline. The external oblique aponeurosis was reapproximated in a running fashion using 3 0 Vicryl. The subcutaneous tissues were reapproximated with 3 0 Vicryl skin closed with 4 0 Monocryl followed by the application of Dermabond. At the end of the operation I ensured that both testicles were within the scrotum. The sponge instrument count at the end operation was correct. The patient emerged from anesthesia was extubated and transferred to the postoperative care unit in stable condition. A total of 30 ml of of 0.25% bupivicaine was used to infiltrate the skin. Complications: none Post-operative Condition: stable Disposition: same day surgery
[2023-03-14 13:06] VITALS: BP 117/81; PULSE 72; RESP 116; TEMP 36.7; O2SAT 95
[2023-03-14 13:11] VITALS: BP 116/82; PULSE 70; RESP 16; O2SAT 96
[2023-03-14 13:16] VITALS: BP 127/84; PULSE 72; RESP 12; O2SAT 97
[2023-03-14 13:21] VITALS: BP 112/72; PULSE 67; RESP 12; TEMP 36.5; O2SAT 98
[2023-03-14 13:27] VITALS: BP 118/77; PULSE 66; RESP 16; O2SAT 98
[2023-03-14] MEDS: OXYCODONE/ACETAMINOPHEN 5/325 TABLET 1 TAB PO (13:32)
== END 2023-03-14 13:45 | disposition home or self-care (01) ==
PROVIDERS: PCP Registered Nurse Diabetes Educator; Referring Provider Surgery; Visit Provider Surgery
PROC: (CPT 49505; principal; 2023-03-14 12:15)
DX: K40.90 Unilateral inguinal hernia, without obstruction or gangrene, not specified as recurrent (principal)
CPT/HCPCS: 49505; 82962; J0690; J1100; J1170; J2405; J2704; J3010

== ENCOUNTER → 2023-04-20 10:03 | Outpatient (CLI) | payer OTHER, MEDICAID, SELFPAY ==
[2023-04-20 11:54] LABS: Hematocrit 43.4 % (41-53); Hemoglobin 14.6 g/dL (13.5-17.5)
[2023-04-20 11:56] LABS: Hematocrit 43.7 % (41-53); Hemoglobin 14.6 g/dL (13.5-17.5); Mean Corpuscular HGB Conc 33.3 % (30-36); Mean Corpuscular Volume 90.1 fL (80-100); Platelet Count 212 X10^3/uL (150-400); Red Blood Cell Count 4.85 X10^6/uL (4.5-5.9); Red Cell Distribution Width 14.4 % (11.6-14.8); White Blood Cell Count 7.2 X10^3/uL (4.5-11.0)
[2023-04-20 12:05] LABS: Hemoglobin A1C% w Est Avg Glu 5.3 % (4.0-6.0)
[2023-04-20 12:38] LABS: Cholesterol 121 mg/dL (140-199); HDL Cholesterol 36 mg/dL (40-60); LDL Cholesterol Calculated 73 mg/dL (<100); Triglycerides 61 mg/dL (35-150)
[2023-04-20 12:39] LABS: Alanine Aminotransferase 24 IU/L (<50); Albumin Globulin Ratio 1.4 (1.0-2.8); Alkaline Phosphatase 65 U/L (38-126); Aspartate Aminotransferase 27 IU/L (17-59); BUN Creatinine Ratio 21.6 (6-22); Bilirubin Total 0.4 mg/dL (0.2-1.3); Blood Urea Nitrogen 22 mg/dL (9-20); Carbon Dioxide 27 mmol/L (22-32); Chloride 106 mmol/L (98-107); Estimated Glomerular Filt Rate > 60 mL/min (>60); Globulin 2.9 g/dL (1.7-4.1); Glucose 100 mg/dL (70-100); HEMOLYSIS < 15 (0-50); Potassium 4.3 mmol/L (3.4-5.1); Sodium 142 mmol/L (137-145); Total Protein 6.9 g/dL (6.3-8.2)
[2023-04-20 13:01] LABS: TSH w/ Reflex to FT4 0.38 uIU/mL (0.47-4.68)
[2023-04-20 13:48] LABS: Free T4, Direct Thyroxine 1.26 ng/dL (0.78-2.19)
[2023-04-27 15:16] LABS: Percent Free Testosterone 1.92 % (1.50-4.20); Testosterone Free 6.02 ng/dL (5.00-21.00); Testosterone Total 313.6 ng/dL (264.0-916.0)
== END ==
PROVIDERS: PCP Registered Nurse Diabetes Educator; Referring Provider Internal Medicine Endocrinology, Diabetes & Metabolism; Visit Provider Internal Medicine Endocrinology, Diabetes & Metabolism
DX: R79.89 Other specified abnormal findings of blood chemistry (principal); E03.9 Hypothyroidism, unspecified; E78.5 Hyperlipidemia, unspecified; R73.03 Prediabetes
CPT/HCPCS: 36415; 80053; 80061; 83036; 84402; 84403; 84439; 84443; 85014; 85018; 85027

== ENCOUNTER → 2023-06-14 11:50 | Outpatient (CLI) | payer OTHER, MEDICAID, SELFPAY ==
[2023-06-14 13:14] LABS: TSH w/ Reflex to FT4 0.56 uIU/mL (0.47-4.68)
== END ==
PROVIDERS: PCP Registered Nurse Diabetes Educator; Referring Provider Registered Nurse Diabetes Educator; Visit Provider Registered Nurse Diabetes Educator
DX: E03.9 Hypothyroidism, unspecified (principal)
CPT/HCPCS: 36415; 84443

== ENCOUNTER → 2023-10-09 12:59 | Outpatient (CLI) | payer OTHER, MEDICAID, SELFPAY ==
[2023-10-09 14:07] LABS: Add Manual Diff / Slide Review NO; Basophils Absolute Auto 0 /uL (0-100); Basophils Percent Auto 0.4 % (0-2); Eosinophils Absolute Auto 200 /uL (0-450); Eosinophils Percent Auto 1.5 % (2-4); Hematocrit 45.6 % (41-53); Hemoglobin 15.2 g/dL (13.5-17.5); Lymphocytes Absolute Auto 2200 /uL (1100-4500); Mean Corpuscular HGB Conc 33.3 % (30-36); Mean Corpuscular Hemoglobin 29.3 PG (26-34); Monocytes Absolute Auto 1300 /uL (0-900); Monocytes Percent Auto 11.9 % (3-14); Neutrophils Absolute Auto 7300 /uL (1500-7000); Neutrophils Percent Auto 66.2 % (50-75); Platelet Count 219 X10^3/uL (150-400); Red Blood Cell Count 5.18 X10^6/uL (4.5-5.9); Red Cell Distribution Width 14.3 % (11.6-14.8)
[2023-10-09 14:39] LABS: Alanine Aminotransferase 23 IU/L (<50); Albumin 4.3 g/dL (3.5-5.0); Albumin Globulin Ratio 1.3 (1.0-2.8); Alkaline Phosphatase 84 U/L (38-126); Aspartate Aminotransferase 25 IU/L (17-59); BUN Creatinine Ratio 26.2 (6-22); Bilirubin Total 0.7 mg/dL (0.2-1.3); Blood Urea Nitrogen 28 mg/dL (9-20); Calcium 9.5 mg/dL (8.4-10.2); Carbon Dioxide 26 mmol/L (22-32); Chloride 107 mmol/L (98-107); Estimated Glomerular Filt Rate > 60 mL/min (>60); Globulin 3.2 g/dL (1.7-4.1); Glucose 88 mg/dL (70-100); HEMOLYSIS < 15 (0-50); Potassium 4.1 mmol/L (3.4-5.1); Sodium 139 mmol/L (137-145); Total Protein 7.5 g/dL (6.3-8.2)
[2023-10-09 14:48] LABS: Free T4, Direct Thyroxine 1.22 ng/dL (0.78-2.19)
[2023-10-09 15:02] LABS: Thyroid Stimulating Hormone 1.01 uIU/mL (0.47-4.68)
== END ==
PROVIDERS: PCP Registered Nurse Diabetes Educator; Referring Provider Registered Nurse Diabetes Educator; Visit Provider Registered Nurse Diabetes Educator
DX: E03.9 Hypothyroidism, unspecified (principal); F41.9 Anxiety disorder, unspecified; R25.1 Tremor, unspecified; Z51.81 Encounter for therapeutic drug level monitoring
CPT/HCPCS: 36415; 80053; 84439; 84443; 85025